=== PATIENT | male | born 1985 | race Caucasian/White ===

== ENCOUNTER 2020-12-20 19:10 | Emergency (ER) | payer OTHER, SELFPAY ==
[2020-12-20 19:15] VITALS: BP 149/106; PULSE 96; RESP 21; TEMP 35.8; O2SAT 97; BMI 31.1
[2020-12-20 19:34] LABS: Apearance,Urine Clear (Clear); Color,Urine Yellow (Yellow); Glucose,Urine (UA) >=1000 (Negative); Protein,Urine Negative (Negative); Specific Gravity, Urine 1.015 (1.005-1.030)
[2020-12-20 19:35] LABS: Microscopic, Urine URINE MICROSCOPIC (MICROSCOPIC)
[2020-12-20 19:35] LABS: Bilirubin,Urine Negative (Negative); Blood, Urine Negative (Negative); Ketones,Urine 15 (Negative); UTC Leukocyte Esterase,Urine Negative (Negative); UTC Nitrate,Urine Negative (Negative); Urobilinogen,Urine 0.2 EU/dl (0.2)
--- NOTE | 2020-12-20 19:37 | HMH.EDUTC ---
[facility] [place] Disposition Clinical Impression: Hyperglycemia Disposition: Still a Patient Condition on Discharge: Fair Referrals: PCP,Dianna [Primary Care Provider] - Time of Disposition: 19:45 Medical Decision Making - Master Inquiry Pt receiving controlled substance: No Master was queried for this patient: No Vital Signs: 12/20/20 19:15 Temperature 96.5 F L Temperature Source Temporal Artery Scan Pulse Rate [Left Brachial] 96 H Respiratory Rate 21 Blood Pressure [Left Arm] 149/106 H Blood Pressure Mean [Left Arm] 120 Blood Pressure Source [Left Arm] Automatic Cuff Blood Pressure Position [Left Arm] Sitting 02 Sat by Pulse Oximetry 97 Oxygen Delivery Method Room Air - Lab Data Lab results reviewed: Yes: I reviewed the patient's lab results. Lab Results 12/20/20 19:28: Urine Color Yellow, Urine Appearance Clear, Urine pH 6.0, Ur Specific [place] 1.015, Urine Protein Negative, Urine Glucose (UA) >=1000, Urine Ketones 15, Urine Blood Negative, Urine Nitrate Negative, Urine Bilirubin Negative, Urine Urobilinogen 0.2, Ur Leukocyte Esterase Negative Orders (Tests/Meds): ORDERS Category Date Time Status Urinalysis and Microscopic Stat Lab 12/20/20 19:30 Received Medical Decision Narrative: Patient FSBS in [facility] read HI denies history of diabetes and due to complaints and symptoms recommended further work up and evaluation in the ED and patient agreed Called ED and spoke with Staff patient moved to room 10 [facility] [place] HPI - General Stated complaint: excessive thirst, dizzy,vomiting Time Seen by Provider: 12/20/20 19:20 Mode of Arrival: Ambulatory Source of Information: Patient Limitations: No Limitations Description of Symptoms (Recalled from Triage Doc. by RN): PATIENT C/O EXCESSIVE THIRST, DIZZINESS, NAUSEA, VOMITING AND FATIGUE. 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 NO HISTORY OF DIABETES, HOWEVER HE DOES HAVE A FAMILY HISTORY. HEENT Symptoms (Recalled from RN notes): No Resp Symptoms (Recalled from RN notes): No Skin Symptoms (Recalled from RN notes): No MS Symptoms (Recalled from RN notes): No Functional Status (Recalled from RN notes): WNL - History of Present Illness Provider Complaint: Patient states that for about a month on and off he has been having episodes of dizziness and blurred vision, state that he seen his Eye Doctor and they told him his vision had got worse and got new glasses States that for the last several days he has been feeling overly tired and not himself. Today he started having dizziness again, excessive thirst, blurry vision and not feeling right States that he was having frequent urination and sit down on couch and family states he zoned out felt sick at his stomach and vomited. States that mother is a diabetic and he used her machine and checked his FSBS and it read high so family made him come in States that he dont feel good - Related Data Home Medications Medication Instructions Recorded Confirmed ibuprofen 800 mg tablet 800 mg PO TID 09/06/19 09/06/19 Allergies Allergy/AdvReac Type Severity Reaction Status Date / Time No Known Allergies Allergy Verified 09/06/19 17:09 - Worker's Comp Is this a Worker's Comp case?: No [facility] History - Hepatitis A Screen Drug use history?: No High risk sexual behaviors?: No History of sexually transmitted infection?: No Currently employed?: No Childcare worker?: No Do you have indoor plumbing?: Yes Do you have electricity?: Yes Attestation statement:: This patient has been screened for Hepatitis A risk factors. I have reviewed the patient's past medical history: Yes Other Surgeries: Yes: Other - Social History Smoking Status: Current every day smoker Alcohol Intake: never Substance Use Type: denies use Occupational Status: other Household Members: family Family Hx:: Non-contributory ROS Obtained: Yes All systems reviewed & no additional complaints, Yes S
--- NOTE | 2020-12-20 19:38 | PC.NURSE ---
PATIENT SENT TO ER PER LEBRON SALVADOR APRN FOR FURTHER EVALUATION OF HYPERGLYCEMIA. REPORT GIVEN TO Julieth DECKER RN
[2020-12-20 19:48] VITALS: BP 149/106; PULSE 96; RESP 20; TEMP 36.4; O2SAT 97; BMI 31.0
[2020-12-20 19:54] LABS: Appearance,Urine CLEAR (Clear); Bilirubin,Urine Negative (Negative); Blood, Urine Negative (Negative); Color,Urine YELLOW (Yellow); Glucose,Urine (UA) 3+ (Negative); Ketones,Urine 1+ (Negative); Leukocyte Esterase,Urine Negative (Negative); Nitrate,Urine Negative (Negative); PH,Urine 6.5 (5.0-8.5); Protein,Urine Negative (Negative); Specific Gravity, Urine <= 1.005 (1.005-1.030); Urobilinogen,Urine 0.2 EU/dl (0.2)
[2020-12-20 20:00] VITALS: BP 149/98; PULSE 90; RESP 17; O2SAT 97
[2020-12-20 20:05] LABS: Basophils # 0.1 K/mm3 (0-0.2); Basophils % 0.7 % (0.1-2.0); Eosinophils # 0.1 K/mm3 (0.0-0.4); Hematocrit 49.6 % (42.0-52.0); Hemoglobin 16.4 g/dL (14.1-18.0); Lymphocytes # 3.6 K/mm3 (0.7-4.5); Lymphocytes % 38.2 % (10-50); Mean Corpuscular HGB Conc 33.1 g/dL (31.8-35.4); Mean Corpuscular Hemoglobin 31.1 pg (27.0-31.2); Mean Corpuscular Volume 94.2 fl (80-94); Mean Platelet Volume 10.3 fl (7.4-10.4); Monocytes # 0.5 K/mm3 (0.1-1.0); Neutrophils # 5.2 K/mm3 (1.8-7.8); Neutrophils % 55.1 % (37.0-80.0); Platelet Count 160 K/mm3 (142-424); Red Blood Count 5.27 M/mm3 (4.60-6.20); Red Cell Distribution Width 13.3 % (11.5-17.5); White Blood Count 9.5 K/mm3 (4.8-10.8)
[2020-12-20 20:08] LABS: Acetone, Serum (Rapid) None Detected (None Detect); Albumin Level 4.9 g/dl (3.5-5.0); Albumin/Globulin Ratio 1.3 (1.1-1.8); Alkaline Phosphatase 178 U/L (38-126); Anion Gap 17.4 mEq/L (5-15); Bilirubin,Total 1.2 mg/dl (0.2-1.3); Blood Urea Nitrogen 13 mg/dl (9-20); Calcium 10.3 mg/dl (8.4-10.2); Carbon Dioxide 25 mmol/L (22.0-30.0); Chloride 89 mmol/L (98-107); Creatinine Clearance Estimated 253 mL/min (50-200); Estimated Glomerular Filt Rate 153 ml/min (>60); GFR (African American) 186 ML/MIN (>60); Globulin 3.9 g/dL (1.3-3.2); Potassium 4.4 mmoL/L (3.5-5.1); Sodium 127 mmol/L (136-145); Total Protein,Serum 8.8 g/dl (6.3-8.2)
[2020-12-20 20:09] LABS: Alanine Aminotransferase 260 U/L (12-78); Aspartate Amino Transferase 151 U/L (17-59)
[2020-12-20 20:13] LABS: C-Reactive Protein 8.5 mg/L (0-4)
[2020-12-20 20:14] LABS: Hemoglobin A1C > 14.0 % (4.0-6.0)
[2020-12-20 20:30] VITALS: BP 140/98; PULSE 82; RESP 17; O2SAT 98
[2020-12-20 20:35] LABS: Erythrocyte Sedimentation Rate 5 mm/hr (0-15); Glucose 709 mg/dl (74-100)
[2020-12-20 21:00] VITALS: BP 141/96; PULSE 86; RESP 17; O2SAT 96
[2020-12-20 21:07] LABS: POC Glucose,Bedside 471 (70-110)
--- NOTE | 2020-12-20 21:49 | HMH.EDWEAK ---
ED Disposition Clinical Impression: Hyperglycemia, Hyperglycemia without ketosis, Elevated liver enzymes, Obesity (BMI 30.0-34.9) Disposition: Home, Self-Care Condition on Discharge: Good Instructions: DI for Hyperglycemia -- Adult Additional Instructions: call pcp on tuesday and use meds as directed Prescriptions: Metformin HCl [Metformin HCl ER] 500 mg PO BID #30 tab.er.24h Transmission Status: Pending to [id number] Referrals: PCP,No [Primary Care Provider] - - Critical Care Critical Care Time: No Attestation: On 12/20/20, the high probability of a clinically significant, sudden or life threatening deterioration of the following system(s) required my full and direct attention, intervention and personal management. The time I documented below is in addition to time spent performing reported procedures but includes the following listed in this critical care notation. Medical Decision Making - Medical Records Medical records reviewed: Yes: I reviewed the patient's medical records. - Master Inquiry Pt receiving controlled substance: No Vital Signs: 12/20/20 19:15 12/20/20 19:48 12/20/20 20:00 Temperature 96.5 F L 97.5 F L Temperature Source Temporal Artery Scan Oral Pulse Rate [Left Brachial] 96 H 96 H 90 Respiratory Rate 21 20 17 Blood Pressure [Left Arm] 149/106 H 149/106 H 149/98 H Blood Pressure Mean [Left Arm] 120 120 115 Blood Pressure Source [Left Arm] Automatic Cuff Automatic Cuff Blood Pressure Position [Left Arm] Sitting Supine 02 Sat by Pulse Oximetry 97 97 97 Oxygen Delivery Method Room Air Room Air 12/20/20 20:30 12/20/20 21:00 Temperature Temperature Source Pulse Rate [Left Brachial] 82 86 Respiratory Rate 17 17 Blood Pressure [Left Arm] 140/98 H 141/96 H Blood Pressure Mean [Left Arm] 112 111 Blood Pressure Source [Left Arm] Automatic Cuff Automatic Cuff Blood Pressure Position [Left Arm] Supine Sitting 02 Sat by Pulse Oximetry 98 96 Oxygen Delivery Method Room Air Room Air - Lab Data Lab results reviewed: Yes: I reviewed the patient's lab results. Lab Results 12/20/20 19:28: Urine Color Yellow, Urine Appearance Clear, Urine pH 6.0, Ur Specific [place] 1.015, Urine Protein Negative, Urine Glucose (UA) >=1000, Urine Ketones 15, Urine Blood Negative, Urine Nitrate Negative, Urine Bilirubin Negative, Urine Urobilinogen 0.2, Ur Leukocyte Esterase Negative 12/20/20 19:30: Urine Color Yellow, Urine Appearance Clear, Urine pH 6.5, Ur Specific [place] <= 1.005, Urine Protein Negative, Urine Glucose (UA) 3+, Urine Ketones 1+, Urine Blood Negative, Urine Nitrate Negative, Urine Bilirubin Negative, Urine Urobilinogen 0.2, Ur Leukocyte Esterase Negative, Urine WBC 3-5 12/20/20 19:44: WBC 9.5, RBC 5.27, Hgb 16.4, Hct 49.6, MCV 94.2 H, MCH 31.1, MCHC 33.1, RDW 13.3, Plt Count 160, MPV 10.3, Neut % (Auto) 55.1, Lymph % (Auto) 38.2, [place] % (Auto) 5.0, Eos % (Auto) 1.0, Baso % (Auto) 0.7, Neut # (Auto) 5.2, Lymph # (Auto) 3.6, [place] # (Auto) 0.5, Eos # (Auto) 0.1, Baso # (Auto) 0.1, ESR 5 12/20/20 19:44: Sodium 127 L, Potassium 4.4, Chloride 89 L, Carbon Dioxide 25, Anion Gap 17.4 H, BUN 13, Creatinine 0.60 L, Estimated Creat Clear 253, Estimated GFR 153, Est GFR ( Amer) 186, Glucose 709 H*, Calcium 10.3 H, Total Bilirubin 1.2, AST 151 H, ALT 260 H, Alkaline Phosphatase 178 H, C-Reactive Protein 8.5 H, Total Protein 8.8 H, Albumin 4.9, Globulin 3.9 H, Albumin/Globulin Ratio 1.3, Procalcitonin 0.240 12/20/20 19:44: Hemoglobin A1c > 14.0 H 12/20/20 19:44: Acetone Level None detected 12/20/20 21:00: POC Glucose 471 H* Result diagrams: 12/20/20 19:44 12/20/20 19:44 Orders (Tests/Meds): ED MEDICATIONS Generic Name Dose Route Start Last Admin Trade Name Freq PRN Reason Stop Dose Admin Sodium Chloride 1,000 mls @ 999 mls/hr 12/20/20 20:00 12/20/20 19:58 Sod Chlor 0.9% 1000ml Bag IV 12/20/20 21:00 999 mls/hr .Q1H1M ATTILA Administration Sodium Chloride 1,000
[2020-12-20 22:11] VITALS: BP 141/96; PULSE 86; RESP 16; TEMP 36.4; O2SAT 97
[2020-12-23 10:14] LABS: POC Glucose,Bedside > 600 (70-110)
== END 2020-12-20 22:14 | disposition home or self-care (01) ==
LOC: UTC 19:20 → ER 19:31
PROVIDERS: Emergency Medicine; Nurse Practitioner; Emergency Provider Emergency Medicine
DX: E11.65 Type 2 diabetes mellitus with hyperglycemia (principal); R74.8 Abnormal levels of other serum enzymes; F17.210 Nicotine dependence, cigarettes, uncomplicated
CPT/HCPCS: 80053; 81001; 81003; 82009; 82962; 83036; 84145; 85025; 85651; 86140; 96365; 96366; 96375; 99283

== ENCOUNTER 2021-05-26 12:07 | Emergency (ER) | payer OTHER, SELFPAY ==
[2021-05-26 12:21] VITALS: BMI 33.9
[2021-05-26 13:20] VITALS: BP 129/83; PULSE 102; RESP 19; TEMP 36.9; O2SAT 94; BMI 32.3
[2021-05-26 13:23] VITALS: BP 129/83; PULSE 102; RESP 19; TEMP 36.9; O2SAT 94
--- NOTE | 2021-05-26 13:34 | HMH.EDUTC ---
[facility] [place] Disposition Clinical Impression: Exposure to COVID-19 virus Disposition: Home, Self-Care Condition on Discharge: Good Instructions: Preventing the Spread of Coronavirus Discharge Instructions Additional Instructions: Drink plenty of fluids. Take tylenol for pain or fever. Return if you begin to have difficulty breathing. Follow up with your regular doctor. GO TO THE ER FOR ANY WORSENING SYMPTOMS Quarantine until you know the results of your covid-19 test. If it is positive, the health department should call you and give you further instructions about your length of Quarantine and other thing. Referrals: Russell Hamilton MD [Primary Care Provider] - Forms: Work/School Release Time of Disposition: 13:40 Medical Decision Making - Medical Records Medical records reviewed: No: I reviewed the patient's medical records. - Master Inquiry Pt receiving controlled substance: No Vital Signs: 05/26/21 13:20 05/26/21 13:23 Temperature 98.4 F 98.4 F Temperature Source Oral Pulse Rate 102 H Pulse Rate [Left] 102 H Respiratory Rate 19 19 Blood Pressure 129/83 Blood Pressure [Right Arm] 129/83 Blood Pressure Mean [Right Arm] 98 02 Sat by Pulse Oximetry 94 L [facility] [place] HPI - General Stated complaint: covid test Time Seen by Provider: 05/26/21 13:34 Mode of Arrival: Ambulatory Source of Information: Patient Limitations: No Limitations Description of Symptoms (Recalled from Triage Doc. by RN): Pt c/o cough, runny nose and headache that started a week before his Covid exposure. Pt wants Covid testingg. HEENT Symptoms (Recalled from RN notes): Yes Resp Symptoms (Recalled from RN notes): Yes Skin Symptoms (Recalled from RN notes): No MS Symptoms (Recalled from RN notes): No Functional Status (Recalled from RN notes): wnl - History of Present Illness Provider Complaint: She is here to be tested for covid. She states that she has had a runny nose and felt bad for the past 1 week. - Related Data Home Medications Medication Instructions Recorded Confirmed ibuprofen 800 mg tablet 800 mg PO TID 09/06/19 09/06/19 Previous Rx's Medication Instructions Recorded Metformin HCl [Metformin HCl ER] 500 mg PO BID #30 tab.er.24h 12/20/20 Allergies Allergy/AdvReac Type Severity Reaction Status Date / Time No Known Allergies Allergy Verified 09/06/19 17:09 - Worker's Comp Is this a Worker's Comp case?: No [facility] History - Hepatitis A Screen Drug use history?: No High risk sexual behaviors?: No History of sexually transmitted infection?: No Currently employed?: No Childcare worker?: No Do you have indoor plumbing?: Yes Do you have electricity?: Yes Attestation statement:: This patient has been screened for Hepatitis A risk factors. I have reviewed the patient's past medical history: Yes Medical History: Reports:: Diabetes Mellitus Type 2 Other Surgeries: Yes: Other - Social History Smoking Status: Current every day smoker Tobacco Type: cigarettes # Packs/Day (cigarettes): 1 Alcohol Intake: never Substance Use Type: denies use Occupational Status: other Household Members: family Family Hx:: Non-contributory ROS Obtained: Yes All systems reviewed & no additional complaints - Constitutional Constitutional: Reports system reviewed and no additional complaints, except as docu - Eyes Eyes: Reports system reviewed and no additional complaints, except as docu - ENT Ears, Nose, Mouth, and Throat: Reports system reviewed and no additional complaints, except as docu - Cardiovascular Cardiovascular: Reports system reviewed and no additional complaints, except as docu - Respiratory Respiratory: Reports system reviewed and no additional complaints, except as docu - Gastrointestinal Gastrointestingal: Reports: system reviewed and no additional complaints, except as docu Physical Exam - General General appearance: alert, in no apparent distress - Head Head exam:
== END 2021-05-26 13:42 | disposition home or self-care (01) ==
PROVIDERS: Emergency Provider Nurse Practitioner Family; PCP Internal Medicine Adolescent Medicine
DX: Z20.822 Contact with and (suspected) exposure to COVID-19 (principal); E11.9 Type 2 diabetes mellitus without complications; F17.210 Nicotine dependence, cigarettes, uncomplicated
CPT/HCPCS: 99202; G0463; U0003

== ENCOUNTER → 2021-07-30 11:12 | Outpatient (CLI) | payer OTHER, SELFPAY | PROVIDERS: PCP Internal Medicine Adolescent Medicine; Visit Provider Nurse Practitioner | DX: Z20.822 Contact with and (suspected) exposure to COVID-19 (principal) | CPT/HCPCS: C9803; U0003; U0005 ==

== ENCOUNTER → 2021-08-07 14:10 | Outpatient (CLI) | payer OTHER, SELFPAY | PROVIDERS: PCP Family Medicine; Visit Provider Nurse Practitioner | DX: Z20.822 Contact with and (suspected) exposure to COVID-19 (principal) | CPT/HCPCS: C9803; U0003; U0005 ==

== ENCOUNTER 2021-09-14 11:17 | Emergency (ER) | payer OTHER, SELFPAY ==
[2021-09-14 12:38] VITALS: BP 145/90; PULSE 116; RESP 18; TEMP 36.9; O2SAT 96; BMI 33.2
[2021-09-14 12:49] LABS: UTC Influenza A Antigen Negative (Negative); UTC Influenza B Antigen Negative (Negative)
--- NOTE | 2021-09-14 12:56 | HMH.EDUTC ---
[facility] [place] Clinical Impression: Viral syndrome, Exposure to COVID-19 virus Acute bronchitis Qualifiers: Bronchitis organism: unspecified organism Qualified Code(s): J20.9 - Acute bronchitis, unspecified Disposition: Home, Self-Care Condition on Discharge: Good Instructions: DI for Acute Bronchitis, Preventing the Spread of Coronavirus Discharge Instructions Additional Instructions: Drink plenty of fluids. Take tylenol or ibuprofen for pain or fever. Take the medications as directed. Follow up with your regular doctor. GO TO THE ER FOR ANY WORSENING SYMPTOMS Quarantine until you know the results of your covid-19 test. If it is positive, the health department should call you and give you further instructions about your length of Quarantine and other things. Notify your school or workplace of your results and follow their instructions regarding return to work/school. Prescriptions: Brompheniramine/Pseudoephed/Dm [Bromfed Dm Cough Syrup] 5 ml PO Q6HP PRN #240 ml PRN Reason: Cough Transmission Status: Received by [id number] methylPREDNISolone [Medrol] 4 mg PO DIRECTED 6 Days #21 packet Transmission Status: Received by [id number] Azithromycin [Z-Олег 250mg Tab*] 250 mg PO UD DOSE PK #6 tab Transmission Status: Received by [id number] Referrals: Provider,Referral, MD [Primary Care Provider] - Forms: Work/School Release Time of Disposition: 13:06 Medical Decision Making - Medical Records Medical records reviewed: No: I reviewed the patient's medical records. - Master Inquiry Pt receiving controlled substance: No Vital Signs: 09/14/21 12:38 09/14/21 13:18 Temperature 98.4 F 98.4 F Temperature Source Oral Pulse Rate 116 H Pulse Rate [Left] 116 H Respiratory Rate 18 18 Blood Pressure 145/90 H Blood Pressure [Right Arm] 145/90 H Blood Pressure Mean [Right Arm] 108 02 Sat by Pulse Oximetry 96 - Lab Data Lab results reviewed: Yes: I reviewed the patient's lab results. Lab Results 09/14/21 12:43: Influenza Type A Ag Negative, Influenza Type B Ag Negative 09/14/21 12:46: Chlamy pneumoniae PCR Not detected, Adenovirus (PCR) Not detected, B. pertussis DNA (PCR) Not detected, Coronavirus OC43 (PCR) Not detected, Coronavirus HKU1 (PCR) Not detected, Coronavirus 229E (PCR) Not detected, SARS-CoV-2 (PCR) Not detected, Coronavirus NL63 (PCR) Not detected, Human Metapneumovir PCR Not detected, Influenza A (H1) PCR Not detected, Influ A (H1N1/09) PCR Not detected, Influenza A (H3) PCR Not detected, Influenza Type A (PCR) Not detected, Influenza Type B (PCR) Not detected, M. pneumoniae (PCR) Not detected, Parainfluenza 1 (PCR) Not detected, Parainfluenza 2 (PCR) Not detected, Parainfluenza 3 (PCR) Not detected, Parainfluenza 4 (PCR) Not detected, RSV (PCR) Not detected, Entero/Rhino (PCR) Not detected [facility] [place] - General Stated complaint: fever/chills, sore throat, cough, soa, SOSA Time Seen by Provider: 09/14/21 12:56 Mode of Arrival: Ambulatory Source of Information: Patient Limitations: No Limitations Description of Symptoms (Recalled from Triage Doc. by RN): pt states he has nasal drainage/congestion, sinus pressure, chills and green nasal mucous. HEENT Symptoms (Recalled from RN notes): Yes (green nasal mucous) Resp Symptoms (Recalled from RN notes): No Skin Symptoms (Recalled from RN notes): No MS Symptoms (Recalled from RN notes): No Functional Status (Recalled from RN notes): na - History of Present Illness Provider Complaint: He c/o body aches, cough, chest congestion, head ache and feeling bad since yesterday. He has not been vaccinated against covid-19. - Related Data Home Medications Medication Instructions Recorded Confirmed ibuprofen 800 mg tablet 800 mg PO TID 09/06/19 09/06/19 Previous Rx's Medication Instructions Recorded Metformin HCl [Metformin HCl ER] 500 mg PO BID #30 tab.er.24h 12/20/20 Azithromycin [Z-Олег 250mg
[2021-09-14 13:02] LABS: Adenovirus,PCR Not Detected (NotDetected); Bordetella Pertussis Not Detected (NotDetected); Chlamydophila Pneumoniae, PCR Not Detected (NotDetected); Coronavirus 19, PCR Not Detected (NotDetected); Coronavirus 229E Not Detected (NotDetected); Coronavirus NL63 Not Detected (NotDetected); Coronavirus OC43 Not Detected (NotDetected); Coronovirus HKU1,PCR Not Detected (NotDetected); Human Metapneumovirus Not Detected (NotDetected); Influenza A, PCR Not Detected (NotDetected); Influenza AH1, 2009 Not Detected (NotDetected); Influenza AH1, PCR Not Detected (NotDetected); Influenza AH3,PCR Not Detected (NotDetected); Influenza B, PCR Not Detected (NotDetected); Mycoplasma Pneumoniae, PCR Not Detected (NotDetected); Parainfluenza 1, PCR Not Detected (NotDetected); Parainfluenza 2, PCR Not Detected (NotDetected); Parainfluenza 3, PCR Not Detected (NotDetected); Parainfluenza 4, PCR Not Detected (NotDetected); Respiratory Syncytial Virus Not Detected (NotDetected); Rhinovirus/Enterovirus Not Detected (NotDetected)
[2021-09-14 13:18] VITALS: BP 145/90; PULSE 116; RESP 18; TEMP 36.9
== END 2021-09-14 13:19 | disposition home or self-care (01) ==
PROVIDERS: Emergency Provider Nurse Practitioner Family
DX: J20.9 Acute bronchitis, unspecified (principal); B34.9 Viral infection, unspecified; Z20.822 Contact with and (suspected) exposure to COVID-19; E11.9 Type 2 diabetes mellitus without complications; F17.210 Nicotine dependence, cigarettes, uncomplicated
CPT/HCPCS: 87581; 87632; 87798; 87804; 99202; C9803; G0463; U0003; U0005

== ENCOUNTER → 2021-12-28 08:42 | Outpatient (CLI) | payer OTHER, SELFPAY ==
--- NOTE | 2021-12-28 08:48 | US_ITS ---
FINAL REPORT CLINICAL HISTORY: ELEVATED LIVER ENZYMES; patient diabetic, high blood pressure, obesity FINDINGS: Sonographic images of the right upper quadrant were obtained. The pancreas is partially obscured.The liver is fatty infiltrated. There is a 2 cm gallstone present. There is no evidence of biliary ductal dilatation.The common duct measures 4mm. Limited images of the right kidney are unremarkable. IMPRESSION: Cholelithiasis. No evidence of cholecystitis. Reviewed, Interpreted and Dictated by Denton Bernardo III, MD Transcribed by Allison Salcido Authenticated by Denton Bernardo III, MD on 12/28/2021 09:36:32 AM [facility]
== END ==
PROVIDERS: Visit Provider Internal Medicine Adolescent Medicine
DX: R79.89 Other specified abnormal findings of blood chemistry (principal)
CPT/HCPCS: 76705

== ENCOUNTER 2022-05-27 09:14 | Emergency (ER) | payer OTHER, SELFPAY ==
[2022-05-27 09:40] VITALS: BP 138/77; PULSE 89; RESP 19; TEMP 36.6; O2SAT 98; BMI 35.2
[2022-05-27 09:50] VITALS: BP 138/77; PULSE 89; RESP 19; TEMP 36.6; O2SAT 98
--- NOTE | 2022-05-27 09:55 | HMH.EDUTC ---
[facility] [place] Impression: Exposure to COVID-19 virus Disposition: Home, Self-Care Condition on Discharge: Good Instructions: DI for COVID-19 (Suspected or Confirmed ), Preventing the Spread of Coronavirus Discharge Instructions Additional Instructions: *Monitor Temp, Over the counter Motrin or Tylenol as directed/as needed Tylenol every 4 hours and Motrin every 6 hours (as long as your family doctor has told you that you can take it) for fever or pain. and straight to ER if unable to lower temp less than 101.0 after medication given Follow up IMMEDIATELY for new or worsening symptoms or no Noticeable improvement over the next 48-72 hours. 911 for difficulty breathing or swallowing You were tested for today for COVID19 your test result should be back in the next 24-48 hours, you may check your results on the [facility] My Health Portal Make sure to take your Vitamins Vit. C Vit D and Zinc if you can take them Referrals: Alvin Edwards MD [Primary Care Provider] - As needed Forms: Work/School Release Medical Decision Making - Master Inquiry Pt receiving controlled substance: No Master was queried for this patient: No Vital Signs: 05/27/22 09:40 Temperature 97.8 F Temperature Source Oral Pulse Rate [Right Brachial] 89 Respiratory Rate 19 Blood Pressure [Right Arm] 138/77 Blood Pressure Mean [Right Arm] 97 Blood Pressure Source [Right Arm] Automatic Cuff Blood Pressure Position [Right Arm] Sitting 02 Sat by Pulse Oximetry 98 Oxygen Delivery Method Room Air Orders (Tests/Meds): ORDERS Category Date Time Status Covid-19 Nasal PCR ([facility]) Routine Lab 05/27/22 09:40 Received [facility] [place] - General Stated complaint: covid test Time Seen by Provider: 05/27/22 09:56 Mode of Arrival: Ambulatory Source of Information: Patient Limitations: No Limitations Description of Symptoms (Recalled from Triage Doc. by RN): COVID TEST D/T EXPOSURE. C/O COUGH, RUNNY NOSE, FEVER AND HEADACHE SINCE YESTERDAY HEENT Symptoms (Recalled from RN notes): Yes Resp Symptoms (Recalled from RN notes): Yes Skin Symptoms (Recalled from RN notes): No MS Symptoms (Recalled from RN notes): No Functional Status (Recalled from RN notes): WNL - History of Present Illness Provider Complaint: Patient states that and 2 kids at home had COVID about a week ago States that yesterday he started having some nasal congestion, body aches low grade fever and headache so he wanted to come in and get tested for COVID States that he did an at home test and it was positive - Related Data Home Medications Medication Instructions Recorded Confirmed ibuprofen 800 mg tablet 800 mg PO TID 09/06/19 02/25/22 Previous Rx's Medication Instructions Recorded Metformin HCl [Metformin HCl ER] 500 mg PO BID #30 tab.er.24h 12/20/20 methylPREDNISolone [Medrol] 4 mg PO DIRECTED 6 Days #21 09/14/21 packet Allergies Allergy/AdvReac Type Severity Reaction Status Date / Time No Known Allergies Allergy Verified 02/25/22 10:45 - Worker's Comp Is this a Worker's Comp case?: No [facility] History - Hepatitis A Screen Attestation statement:: This patient has been screened for Hepatitis A risk factors. I have reviewed the patient's past medical history: Yes Medical History: Reports:: Diabetes Mellitus Type 2 Other Surgeries: Yes: Other - Social History Smoking Status: Current every day smoker Tobacco Type: cigarettes # Packs/Day (cigarettes): 1 Alcohol Intake: never Substance Use Type: denies use Occupational Status: other Household Members: family Family Hx:: Non-contributory ROS Obtained: Yes All systems reviewed & no additional complaints, Yes Systems reviewed as appropriate & no additional complaints - Constitutional Constitutional: Reports system reviewed and no additional complaints, except as docu, Reports body ache, Reports chills, Reports fatigue, Reports headache(s) - ENT Ears, Nose, Mouth, and Throat: Reports sys
== END 2022-05-27 09:58 | disposition home or self-care (01) ==
PROVIDERS: Emergency Provider Nurse Practitioner; PCP Internal Medicine Adolescent Medicine
DX: U07.1 COVID-19
CPT/HCPCS: 99212; C9803; G0463; U0003; U0005

== ENCOUNTER 2023-04-07 07:42 | Emergency (ER) | payer OTHER, SELFPAY ==
[2023-04-07 07:42] VITALS: BP 145/92; PULSE 101; RESP 16; TEMP 36.7; O2SAT 97; BMI 34.5
--- NOTE | 2023-04-07 08:15 | HMH.EDGENADL ---
Discharge Plan Disposition Patient Disposition: Home Health Service Prescriptions Prescriptions: New clindamycin HCl 150 mg capsule 150 mg PO TID 7 Days Qty: 21 0RF No Action ibuprofen 800 mg tablet 800 mg PO TID metformin 500 MG tablet extended release 24 hr 500 mg PO BID Qty: 30 0RF methylprednisolone 4 MG tablets,dose pack 4 mg PO DIRECTED 6 Days Qty: 21 0RF Referrals Follow up/Referrals: Russell Hamilton MD [Primary Care Provider] - See instructions Clinical Impressions Clinical Impression: Cellulitis of skin of lip Discharge ED Provider: Saud Juarez General Adult HPI General Chief complaint: PAIN Stated complaint: Lip inflammation Time Seen by Provider: 04/07/23 08:06 Mode of Arrival: Ambulatory Limitations: No Limitations Description of Symptoms (Recalled from ER Triage Doc. by RN): pt to the ED with red, swollen upper lip that is painful to the touch and with movement. pt reports it was smaller yesterday when he went to his PCP for a check up. PCP gave him an antiviral and ointment.pt reports he picked at it at home and woke up this morning and it was much larger and more painful patient reports that about 3 weeks ago his had MRSA on her elbow. History of Present Illness HPI narrative: 37-year-old white male presents with upper lip lesion. He was seen by his primary care yesterday and given Bactroban and Valtrex for a lesion on his upper lip. Apparently he continued to try to pop it and this morning woke up with his entire middle portion of his upper lip swollen he has no known drug allergies but does take medication for diabetes. Related Data Home Medications Medication Instructions Recorded Confirmed ibuprofen 800 mg tablet 800 mg PO TID 09/06/19 02/25/22 Previous Rx's Medication Instructions Recorded metformin 500 mg tablet,extended 500 mg PO BID ##30 12/20/20 release 24 hr methylprednisolone 4 mg tablets in 4 mg PO DIRECTED 6 days #21 09/14/21 a dose pack packets clindamycin HCl 150 mg capsule 150 mg PO TID 7 days #21 caps 04/07/23 Allergies Allergy/AdvReac Type Severity Reaction Status Date / Time No Known Allergies Allergy Verified 02/25/22 10:45 [facility] Disclaimer: The information contained in this section may have been updated after the patient was seen, as this information can be updated by other users. Social History Smoking Status: Never smoker alcohol intake: never substance use type: denies use current occupational status: other Travel in the last 8 weeks: None household members: family ROS Obtained: Yes All systems reviewed & no additional complaints except as documented Physical Exam General General appearance: alert and in no apparent distress Head Head exam: atraumatic and normocephalic Expanded ENT Exam Nose/Mouth Image: 1. Red swollen with central ulcerated lesion. Neck Neck exam: Present normal inspection Chest Chest inspection: Present normal inspection Respiratory Respiratory exam: Present normal lung sounds bilaterally Cardiovascular Cardiovascular exam: Present regular rate and normal rhythm Abdominal Exam Abdominal exam: Present soft; Absent tenderness Extremities Exam Extremities exam: Present normal inspection Neurological Exam Neurological exam: Present alert, oriented X3 and CN II-XII intact Medical Decision Making Medical Records MR Comment: 37-year-old white male presents with lip lesion for which he started treatment yesterday with Bactroban and valacyclovir. The lesion is more swollen and tender today. Not certain whether this is a natural progression or whether it stems from pressure from trying to pop the lesion. Nonetheless he has exposure to MRSA the lesion itself would most likely be consistent with a viral lesion. He also now reports that he is having pain at the left side of his face which he attributes to clenching his teeth however shingles is always a possibility
[2023-04-07 08:46] VITALS: BP 143/91; PULSE 93; RESP 16; TEMP 36.6; O2SAT 95
== END 2023-04-07 08:48 | disposition home health service (06) ==
PROVIDERS: Emergency Provider Emergency Medicine; PCP Internal Medicine Adolescent Medicine
DX: L03.211 Cellulitis of face (principal); R22.0 Localized swelling, mass and lump, head; Z20.818 Contact with and (suspected) exposure to other bacterial communicable diseases
CPT/HCPCS: 96372; 99283; 99284; J0696

== ENCOUNTER 2023-12-03 08:49 | Outpatient (CLI) | payer OTHER, SELFPAY ==
[2023-12-03 09:25] LABS: Basophils # 0.1 K/mm3 (0-0.2); Eosinophils # 0.1 K/mm3 (0.0-0.4); Eosinophils % 1.6 % (0.1-12.0); Hematocrit 52.2 % (42.0-52.0); Hemoglobin 17.8 g/dL (14.1-18.0); Lymphocytes # 3.3 K/mm3 (0.7-4.5); Lymphocytes % 39.9 % (10-50); Mean Corpuscular HGB Conc 34.1 g/dL (31.8-35.4); Mean Corpuscular Hemoglobin 32.8 pg (27.0-31.2); Mean Corpuscular Volume 96.2 fl (80-94); Mean Platelet Volume 9.5 fl (7.4-10.4); Monocytes # 0.5 K/mm3 (0.1-1.0); Monocytes % 6.4 % (1.7-9.3); Neutrophils # 4.3 K/mm3 (1.8-7.8); Neutrophils % 51.1 % (37.0-80.0); Platelet Count 125 K/mm3 (142-424); Red Blood Count 5.43 M/mm3 (4.60-6.20); Red Cell Distribution Width 13.9 % (11.5-17.5); White Blood Count 8.3 K/mm3 (4.8-10.8)
[2023-12-03 10:24] LABS: Chloride 108 mmol/L (98-107); Sodium 139 mmol/L (136-145)
[2023-12-03 10:25] LABS: Potassium 4.4 mmoL/L (3.5-5.1)
[2023-12-03 10:27] LABS: Alanine Aminotransferase 271 U/L (12-78); Albumin Level 4.6 g/dl (3.5-5.0); Albumin/Globulin Ratio 1.2 (1.1-1.8); Alkaline Phosphatase 111 U/L (38-126); Anion Gap 8.4 mEq/L (5-15); Aspartate Amino Transferase 200 U/L (17-59); Blood Urea Nitrogen 10 mg/dl (9-20); Calcium 9.6 mg/dl (8.4-10.2); Carbon Dioxide 27 mmol/L (22.0-30.0); Cholesterol 237 mg/dl (140-200); Estimated Glomerular Filt Rate 126 ml/min (>60); GFR (African American) 153 ML/MIN (>60); Globulin 3.9 g/dL (1.3-3.2); Glucose 119 mg/dl (74-100); Total Protein,Serum 8.5 g/dl (6.3-8.2); Triglycerides 153 mg/dl (30-150); VLDL Cholesterol 31 mg/dL (0-40)
[2023-12-03 10:28] LABS: Chol/HDL Ratio 4.8 (1-3.5); HDL Cholesterol 49 mg/dl (40-60)
[2023-12-03 10:57] LABS: Thyroid Stimulating Hormone 1.09 uIU/mL (0.465-4.68)
[2023-12-03 11:07] LABS: Hemoglobin A1C 6.2 % (4.0-6.0)
[2023-12-07 14:24] LABS: HBsAg Screen Negative (Negative); HCV Ab Reactive (Non Reactive); Hep A Ab, IGM Negative (Negative); Hep B Core Ab, IgM Negative (Negative)
== END 2023-12-03 23:59 ==
LOC: LAB 08:51
PROVIDERS: PCP Internal Medicine Adolescent Medicine; Visit Provider Nurse Practitioner Family
DX: E11.69 Type 2 diabetes mellitus with other specified complication (principal); R79.89 Other specified abnormal findings of blood chemistry; R53.83 Other fatigue; Z79.84 Long term (current) use of oral hypoglycemic drugs
CPT/HCPCS: 36415; 80053; 80061; 80074; 83036; 84443; 85025; 87522

== ENCOUNTER 2023-12-19 10:36 | Emergency (ER) | payer OTHER, SELFPAY ==
[2023-12-19 11:15] VITALS: BP 135/83; PULSE 100; RESP 18; TEMP 36.8; O2SAT 95; BMI 35.4
--- NOTE | 2023-12-19 11:34 | EXP.UTC ---
Discharge Plan Disposition Patient Disposition: Home, Self-Care Condition: Good Prescriptions Prescriptions: New oseltamivir [Tamiflu] 75 mg capsule 75 mg PO BID 5 Days Qty: 10 0RF [id number] [Bromfed DM] 2-30-10 mg/5 mL Syrup 5 ml PO Q6H PRN (Reason: Cough) Qty: 240 0RF ondansetron 4 mg Tablet,Disintegrating 4 mg PO Q8H PRN (Reason: Nausea) Qty: 12 0RF Referrals Follow up/Referrals: Russell Hamilton MD [Primary Care Provider] - See instructions Activity Restrictions/Add. Instructions Additional Instructions/Restrictions: Drink plenty of fluids. Take tylenol or ibuprofen for pain or fever. Take the medications as directed. Follow up with your regular doctor. GO TO THE ER FOR ANY WORSENING SYMPTOMS Clinical Impressions Clinical Impression: Influenza B Stand Alone Forms Stand Alone Forms: Work/School Release Instructions Patient Instructions: Influenza, DI for Influenza -- Adult, Ondansetron, Oseltamivir Discharge ED Provider: Alvin Rosario [facility] General Stated complaint: bodyaches,fever Time Seen by Provider: 12/19/23 11:34 History of Present Illness Provider Complaint: She states that for the past 2 days she has had fever, chills, body aches, malaise and a dry cough. Related Data Previous Rx's Medication Instructions Recorded rpnbokltablgyvq-pvhfpiybmatafoi-BR 5 ml PO Q6H PRN Cough #240 mL 12/19/23 2 mg-30 mg-10 mg/5 mL oral syrup (Bromfed DM) ondansetron 4 mg disintegrating 4 mg PO Q8H PRN Nausea #12 tabs 12/19/23 tablet oseltamivir 75 mg capsule (Tamiflu) 75 mg PO BID 5 days #10 caps 12/19/23 Allergies Allergy/AdvReac Type Severity Reaction Status Date / Time No Known Allergies Allergy Verified 12/19/23 11:36 [facility] Disclaimer: The information contained in this section may have been updated after the patient was seen, as this information can be updated by other users. Social History Smoking Status: Never smoker alcohol intake: never substance use type: denies use current occupational status: other Travel in the last 8 weeks: None household members: family ROS Obtained: Yes All systems reviewed & no additional complaints except as documented Constitutional Constitutional: Reports chills and Reports fever(s) Eyes Eyes: Denies eye discharge ENT Ears, Nose, Mouth, and Throat: Reports as per HPI Cardiovascular Cardiovascular: Denies chest pain Respiratory Respiratory: Denies chest congestion and Reports cough Gastrointestinal Gastrointestingal: Reports nausea; Denies abdominal pain, constipation, cramping, diarrhea or vomiting Musculoskeletal Musculoskeletal: Denies arthralgias Integumentary/Breasts Skin/Breast: Denies rash Neurologic Neurologic: Denies paresthesias Physical Exam General General appearance: alert and in no apparent distress Eye Eye exam: Present normal appearance, PERRL and EOMI ENT ENT exam: Present mucous membranes moist and normal external ear exam Expanded ENT Exam External ear exam: Present normal external inspection TM/Canal exam: Bilateral TM: erythema and bulging Nose exam: Absent sinus tenderness Nasal speculum exam: Bilateral: normal Mouth exam: Present normal external inspection; Absent drooling Teeth exam: Present normal inspection Throat exam: Present tonsillar erythema and tonsillomegaly Neck Neck exam: Present normal inspection, full ROM and trachea midline; Absent tenderness, lymphadenopathy or thyromegaly Chest Chest inspection: Present normal inspection and symmetric chest wall rise; Absent tenderness or rash Respiratory Respiratory exam: Present normal lung sounds bilaterally; Absent respiratory distress, wheezes, stridor or accessory muscle use Cardiovascular Cardiovascular exam: Present regular rate, normal rhythm and normal heart sounds Abdominal Exam Abdominal exam: Present soft; Absent distention, tenderness, guarding, rebound or rigidity Extremities Exam Extremities exam: Present normal inspection, full ROM and normal capillary refill; Absent tenderness or calf tenderness Back Exam Back exam: Present normal inspection and full ROM; Absent tenderness Neurological Exam Neurological exam: Present alert and oriented X3 Psychiatric Psychiatric exam: Present normal affect and normal mood Skin Skin exam: Present warm, dry, intact and normal color Lymphatic Lymphatic Findings: no adenopathy Medical Decision Making Medical Records Medical records reviewed: No I reviewed the patient's medical records. Master Inquiry Pt receiving controlled substance: No Lab Data Lab results reviewed: Yes I reviewed the patient's lab results.
[2023-12-19 11:45] LABS: UTC Influenza A Antigen Negative (Negative)
[2023-12-19 11:46] LABS: UTC Influenza B Antigen Positive (Negative)
[2023-12-19 12:17] VITALS: BP 135/83; PULSE 100; RESP 18; TEMP 36.8; O2SAT 95
== END 2023-12-19 12:17 | disposition home or self-care (01) ==
PROVIDERS: Emergency Provider Nurse Practitioner Family; PCP Internal Medicine Adolescent Medicine
DX: J10.1 Influenza due to other identified influenza virus with other respiratory manifestations (principal); R50.9 Fever, unspecified; R05.9 Cough, unspecified; M79.18 Myalgia, other site
CPT/HCPCS: 87804; 99212; 99214; G0463

== ENCOUNTER 2024-06-30 09:52 | Outpatient (CLI) | payer BC, SELFPAY ==
[2024-06-30 10:55] LABS: Basophils # 0.1 K/mm3 (0-0.2); Basophils % 1.2 % (0.1-2.0); Eosinophils # 0.1 K/mm3 (0.0-0.4); Hematocrit 51.7 % (42.0-52.0); Hemoglobin 16.2 g/dL (14.1-18.0); Lymphocytes # 2.5 K/mm3 (0.7-4.5); Lymphocytes % 30.7 % (10-50); Mean Corpuscular HGB Conc 31.3 g/dL (31.8-35.4); Mean Corpuscular Hemoglobin 31.7 pg (27.0-31.2); Mean Corpuscular Volume 101.2 fl (80-94); Mean Platelet Volume 10.2 fl (7.4-10.4); Monocytes # 0.4 K/mm3 (0.1-1.0); Monocytes % 5.3 % (1.7-9.3); Neutrophils % 61.8 % (37.0-80.0); Platelet Count 117 K/mm3 (142-424); Red Blood Count 5.11 M/mm3 (4.60-6.20); Red Cell Distribution Width 13.6 % (11.5-17.5)
[2024-06-30 11:01] LABS: INR 0.99 (0.9-1.1); Prothrombin Time 11.1 seconds (10.1-12.5)
[2024-06-30 11:34] LABS: Alanine Aminotransferase 86 U/L (12-78); Albumin/Globulin Ratio 1.1 (1.1-1.8); Alkaline Phosphatase 75 U/L (38-126); Anion Gap 9.4 mEq/L (5-15); Aspartate Amino Transferase 78 U/L (17-59); Bilirubin,Total 1.1 mg/dl (0.2-1.3); Blood Urea Nitrogen 14 mg/dl (9-20); Calcium 9.4 mg/dl (8.4-10.2); Carbon Dioxide 28 mmol/L (22.0-30.0); Chloride 105 mmol/L (98-107); Estimated Glomerular Filt Rate 108 ml/min (>60); GFR (African American) 130 ML/MIN (>60); Globulin 3.6 g/dL (1.3-3.2); Glucose 263 mg/dl (74-100); Potassium 4.4 mmoL/L (3.5-5.1); Sodium 138 mmol/L (136-145); Total Protein,Serum 7.6 g/dl (6.3-8.2)
[2024-06-30 14:25] LABS: Iron 119 ug/dL (49-181)
[2024-06-30 14:34] LABS: Total Iron Binding Capacity 352 ug/dL (261-462)
[2024-06-30 15:02] LABS: Ferritin 146 ng/ml (17.9-464)
[2024-07-01 08:15] LABS: Ceruloplasmin 22.3 mg/dL (16.0-31.0)
[2024-07-01 09:09] LABS: AFP, Tumor Marker 9.4 ng/mL (0.0-6.9)
[2024-07-01 10:10] LABS: Hepatitis B Surface Antigen Negative (Negative)
[2024-07-02 13:12] LABS: Actin (Smooth Muscle) Antibody 43 Units (0-19); Mitochondrial (M2) Antibody <20.0 Units (0.0-20.0)
[2024-07-03 09:22] LABS: Immunoglobulin G, Qn 1561 mg/dL (603-1613)
[2024-07-09 17:10] LABS: Alpha-1-Antitrypsin 156 mg/dL (95-164); Phenotype (PI) MS (.)
== END 2024-06-30 23:59 | disposition home or self-care (01) ==
LOC: LAB 09:57
PROVIDERS: PCP Internal Medicine Adolescent Medicine; Visit Provider Physician Assistant
DX: R74.01 Elevation of levels of liver transaminase levels (principal)
CPT/HCPCS: 87340; 36415; 80053; 81256; 82103; 82104; 82105; 82390; 82728; 82784; 83540; 83550; 85025; 85610; 86038; 86255; 86256

== ENCOUNTER 2024-07-19 21:11 | Emergency (ER) | payer BC, SELFPAY ==
[2024-07-19 21:13] VITALS: BP 128/90; PULSE 84; RESP 20; TEMP 36.9; O2SAT 96; BMI 34.5
[2024-07-19 21:17] VITALS: BP 128/90; PULSE 80; O2SAT 95
--- NOTE | 2024-07-19 21:24 | ED_ITS ---
<Statement entered by Amor Nelson MD - 07/19/24 22:48> I was consulted by the HAILEY, and we discussed the complexity of the problems being addressed. I approved the treatment and management plan for this patient's care in the emergency department, thus performing a substantive portion of the medical decision making. Amor Nelson MD, BHARATHI, FACEP Discharge Plan Disposition Patient Disposition: Home, Self-Care Condition: Good Prescriptions Prescriptions: New methocarbamol 750 mg tablet 750 mg PO Q6H PRN (Reason: muscle spasm) Qty: 20 0RF lidocaine 5 % adhesive patch,medicated 1 patch topical DAILY Qty: 30 0RF Rx Instructions: leave on most painful area for up to 12 hrs No Action oseltamivir [Tamiflu] 75 mg capsule 75 mg PO BID 5 Days Qty: 10 0RF [id number]-rqtcmwqrq-GG [Bromfed DM] 2-30-10 mg/5 mL Syrup 5 ml PO Q6H PRN (Reason: Cough) Qty: 240 0RF ondansetron 4 mg Tablet,Disintegrating 4 mg PO Q8H PRN (Reason: Nausea) Qty: 12 0RF Referrals Follow up/Referrals: Russell Hamilton MD [Primary Care Provider] - See instructions Activity Restrictions/Add. Instructions Additional Instructions/Restrictions: Follow-up with your PCP within 48 hours for recheck. Return to ER for any worsening signs or symptoms as needed. Clinical Impressions Clinical Impression: Left-sided chest wall pain Instructions Patient Instructions: DI for Low Back Pain Print Language Print Language: Kazakh Discharge ED Provider: Amor Nelson General Adult HPI General Chief complaint: Back Pain/Injury Stated complaint: left rib pain and around back Time Seen by Provider: 07/19/24 21:24 History of Present Illness HPI narrative: Patient presents for evaluation of left posterior rib pain. Patient states that he coughed very vigorously yesterday and felt a very sharp pain in his posterior lateral left ribs. He reports no shortness of breath but reports that it hurts with a taking a deep breath. He denies any trauma. He has had several episodes of today where he has coughed and been incapacitated from the pain afterwards periodically. He has never had something like this happen before. He is a full-time smoker and denies cardiac chest pain fever chills hemoptysis hematochezia melena nausea vomit diarrhea. Related Data Previous Rx's ?Medication ?Instructions ?Recorded wrxzdqhzsmnwgrn-egcmqbvfnrbegta-GA 5 ml PO Q6H PRN Cough #240 mL 12/19/23 2 mg-30 mg-10 mg/5 mL oral syrup (Bromfed DM) ondansetron 4 mg disintegrating 4 mg PO Q8H PRN Nausea #12 tabs 12/19/23 tablet oseltamivir 75 mg capsule (Tamiflu) 75 mg PO BID 5 days #10 caps 12/19/23 lidocaine 5 % topical patch 1 patch topical DAILY #30 ea 07/19/24 methocarbamol 750 mg tablet 750 mg PO Q6H PRN muscle spasm #20 07/19/24 tabs Allergies Allergy/AdvReac Type Severity Reaction Status Date / Time No Known Allergies Allergy Verified 12/19/23 11:36 [facility] Disclaimer: The information contained in this section may have been updated after the patient was seen, as this information can be updated by other users. Social History Smoking Status: Current every day smoker tobacco type: cigarettes packs per day: 1 alcohol intake: never substance use type: denies use current occupational status: other Travel in the last 8 weeks: None household members: family Other Medical History Have you received the Flu Vaccine for this season: No Have you received the Pneumonia Vaccine: No ROS Obtained: Yes Systems reviewed as appropriate & no additional complaints except as documented Physical Exam General General appearance: alert and in no apparent distress Chest Chest inspection: Present other (Patient is tender to palpation over the left posterior lateral rib cage with no visible ecchymosis edema or bony deformity.) Respiratory Respiratory exam: Present normal lung sounds bilaterally; Absent respiratory distress, wheezes or accessory muscle use Cardiovascular Cardiovascular exam: Present regular rate Neurological Exam Neurological exam: Present alert and oriented X3 Medical Decision Making Medical Records Medical records reviewed: Yes I reviewed the patient's medical records. Screening: Per USPSTF and CDC recommendations, given the prevalence of disease in our region, it is our hospital?s policy to screen for HIV and viral Hepatitis for all patients aged 18 and over and those with ongoing risk factors. Master Inquiry Pt receiving controlled substance: No Vital Signs: 07/19/24 21:13 07/19/24 21:17 Temperature 98.4 F Temperature Source Oral Pulse Rate 80 Pulse Rate [Left] 84 Respiratory Rate 20 Blood Pressure 128/90 Blood Pressure [Right Arm] 128/90 Blood Pressure Mean [Right Arm] 102 Blood Pressure Source [Right Arm] Automatic Cuff Blood Pressure Position [Right Arm] Sitting 02 Sat by Pulse Oximetry 96 95 Oxygen Delivery Method Room Air Room Air Orders (Tests/Meds): ED MEDICATIONS Discontinued Medications Generic Name Dose Route Start Last Admin Trade Name Michele PRN Reason Stop Dose Admin Acetaminophen 1,000 mg 07/19/24 21:29 07/19/24 21:35 Acetaminophen 500mg Tab PO 07/19/24 21:30 1,000 mg ONCE ONE Administration Ibuprofen 800 mg 07/19/24 21:29 07/19/24 21:35 Ibuprofen 400 Mg Tablet PO 07/19/24 21:30 800 mg ONCE ONE Administration Lidocaine 1 each 07/19/24 21:29 07/19/24 21:35 Lidocaine 5% Transdermal Patch TP 07/19/24 21:30 1 each ONCE ONE Administration Methocarbamol 500 mg 07/19/24 21:29 07/19/24 21:35 Methocarbamol 500mg Tablet PO 07/19/24 21:30 500 mg ONCE ONE Administration ORDERS Category Date Time Status XR ribs LT min 3V w CXR1V Stat Exams 07/19/24 21:29 Taken Medical Decision Narrative: In summary patient is a 39-year-old male who presents to the emergency department for evaluation of left posterior lateral chest wall pain. Patient is hemodynamically stable upon arrival, afebrile. Physical exam is remarkable for tenderness to palpation at the left posterior lateral mid rib cage without any palpable bony deformity edema ecchymosis or swelling. Breath sounds are clear and equal bilaterally to the bases. Heart sounds normal. Patient is in normal sinus rhythm on the bedside monitor satting 95% on room air on the bedside monitor. Differential diagnosis includes muscle strain versus possible costochondral separation versus possible rib fracture etc. Initial workup will be conducted with left ribs with chest view. Initial interventions include Tylenol ibuprofen Lidoderm and Robaxin. Initial workup reviewed by me and my informal interpretation of his imaging shows no acute fracture or process including normal lung flood no rib fracture before radiology read.. Upon repeat evaluation patient reported modest improvement after initial intervention. Given this appropriate for discharge with prescriptions sent for Lidoderm patch and Robaxin and strict return precautions. Critical Care Critical Care Time Critical Care Time: No
--- NOTE | 2024-07-19 21:29 | XR_ITS ---
PROCEDURE INFORMATION: Exam: XR Left Ribs with PA Chest Exam date and time: 07/19/2024 9:32 PM Age: 39 years old Clinical indication: Other: Left posterior rib pain TECHNIQUE: Imaging protocol: Radiologic exam of the left ribs with PA chest. Views: 3 views COMPARISON: No relevant prior studies available. FINDINGS: Lungs: Unremarkable. No consolidation. Pleural spaces: Unremarkable. No pleural effusion. No pneumothorax. Heart/Mediastinum: Unremarkable. No cardiomegaly. Bones/joints: Unremarkable. IMPRESSION: No acute findings.
[2024-07-19] MEDS: IBUPROFEN 400 MG TABLET 800 MG PO (21:35)
[2024-07-19] MEDS: ACETAMINOPHEN 500MG TAB 1000 MG PO (21:35)
[2024-07-19] MEDS: METHOCARBAMOL 500MG TABLET 500 MG PO (21:35)
[2024-07-19] MEDS: LIDOCAINE 5% TRANSDERMAL PATCH 1 EACH TP (21:35)
[2024-07-19 22:02] VITALS: BP 129/85; PULSE 78; RESP 20; TEMP 36.9; O2SAT 98
== END 2024-07-19 22:09 | disposition home or self-care (01) ==
PROVIDERS: Emergency Provider Student in an Organized Health Care Education/Training Program; PCP Internal Medicine Adolescent Medicine
DX: R07.9 Chest pain, unspecified (principal)
CPT/HCPCS: 71101; 99283

== ENCOUNTER 2025-08-12 12:06 | Emergency (ER) | payer BC, SELFPAY ==
[2025-08-12 12:15] VITALS: BP 151/66; PULSE 86; RESP 18; TEMP 36.8; O2SAT 95; BMI 33.9
[2025-08-12 12:22] LABS: POC Glucose,Bedside 342 gm/dL (70-110)
--- NOTE | 2025-08-12 12:28 | CT_ITS ---
FINAL REPORT TECHNIQUE: Axial CT images were performed through the head. Coronal reformatted images were submitted. This study was performed with techniques to keep radiation doses as low as reasonably achievable (ALARA). Individualized dose reduction techniques using automated exposure control or adjustment of mA and/or kV according to the patient's size were employed. CLINICAL HISTORY: Confusion, headache COMPARISON: None FINDINGS: The ventricles are normal in size. There is no evidence of hemorrhage. There is no mass or edema identified. There is no abnormal extra-axial fluid seen. The sinuses are well aerated. IMPRESSION: No acute intracranial process. Reviewed, Interpreted and Dictated by Nelson Sanford MD Transcribed by Milena Dallas Authenticated and [facility]
--- NOTE | 2025-08-12 12:29 | XR_ITS ---
FINAL REPORT TECHNIQUE: Single view chest CLINICAL HISTORY: Confusion, pt has diabetes that is not controlled well FINDINGS: A single view of the chest was obtained. The heart and mediastinum are within normal limits. The lungs are clear. There is no pneumothorax. IMPRESSION: No acute cardiopulmonary process. Reviewed, Interpreted and Dictated by Nelson Sanford MD Transcribed by Allison Salcido Authenticated and [facility]
--- OUTSIDE RECORDS SUMMARY | 2025-08-12 12:29 | XMS_ITS | Clinical Summary ---
Author Organization [facility] Address [address] [place] [address] Phone Care Team Providers Care Surgical Supply Assistant Name Role Phone Unavailable Primary Care Provider Unavailabl e Allergies No known active allergies Medications No known medications Social History Tobacco Use Types Packs/Day Years Used Date Smoking Tobacco: Every Day Cigarettes Alcohol Use Standard Drinks/Week Comments No 0 (1 standard drink = 0.6 oz pur e alcohol) Sex and Gender Information Value Date Recorded Sex Assigned at Not on file Legal Sex Male 5:45 AM EDT Gender Identity Not on file Sexual Orientation Not on file Last Filed Vital Signs Vital Sign Reading Time Taken Comments Blood Pressure 113/69 02/16/2013 9:28 PM EDT Pulse 79 02/16/2013 10:33 PM EDT Temperature 36.8 C (98.2 F) 02/16/2013 8:40 PM EDT Respiratory Rate 18 02/16/2013 10:33 PM EDT Oxygen Saturation 97% 02/16/2013 10:33 PM EDT Inhaled Oxygen Concentration - - Weight 77.1 kg (170 lb) 02/16/2013 8:40 PM EDT Height 182.9 cm (6') 02/16/2013 8:40 PM EDT Body Mass Index 23.06 02/16/2013 8:40 PM EDT Plan of Treatment Health Maintenance Due Date Last Done Comments Annual Wellness Exam 1988 DTaP/TDaP/Td (1 - Tdap) 2004 Hepatitis B Vaccine (1 of 3 - 19+ 3-dose series) 2004 COVID-19 Vaccine ( - 2024-2 6 season) 2025 Influenza Vaccine (#1) 2025 Meningococcal B Vaccine Aged Out No l onger eligible based on patient's age to complete this topic Pneumococcal Vaccine 0-49 Aged Out No longer eligible based on patient's age to complete this topic
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
[2025-08-12 12:56] LABS: Lactate Venous 2.0 mmol/L (0.4-2.0); VBG HCO3 24.1 mmol/L (23-30); VBG PCO2 37.5 mmol/L (35-51); VBG PH 7.43 mmol/L (7.31-7.41); VBG PO2 59.3 mmol/L (28-40)
[2025-08-12 13:04] LABS: Albumin Level 3.6 g/dl (3.5-5.0); Chloride 99 mmol/L (98-107); Hematocrit 44.7 % (42.0-52.0); Hemoglobin 15.7 g/dL (14.1-18.0); Immature Granulocytes % 0.3 %; Mean Corpuscular HGB Conc 35.1 g/dL (31.8-35.4); Mean Corpuscular Hemoglobin 31.9 pg (27.0-31.2); Mean Corpuscular Volume 90.9 fl (80-94); Nucleated Red Blood Cells % 0 %; Platelet Count 97 K/mm3 (142-424); Potassium 4.1 mmoL/L (3.5-5.1); Red Blood Count 4.92 M/mm3 (4.60-6.20); Red Cell Distribution Width-SD 40.9 fL; Sodium 131 mmol/L (136-145); White Blood Count 7.4 K/mm3 (4.8-10.8)
[2025-08-12 13:06] LABS: Anion Gap 11.1 mEq/L (5-15); Blood Urea Nitrogen 13 mg/dl (9-20); Carbon Dioxide 25 mmol/L (22.0-30.0); Creatinine Clearance Estimated 225 mL/min (50-200); Creatinine,Serum 0.70 mg/dl (0.66-1.25); Estimated Glomerular Filt Rate 125 ml/min (>60); GFR (African American) 151 ML/MIN (>60)
[2025-08-12 13:07] LABS: Alanine Aminotransferase 90 U/L (12-78); Albumin/Globulin Ratio 0.7 (1.1-1.8); Alkaline Phosphatase 99 U/L (38-126); Aspartate Amino Transferase 67 U/L (17-59); Bilirubin,Total 1.1 mg/dl (0.2-1.3); Calcium 9.0 mg/dl (8.4-10.2); Globulin 5.0 g/dL (1.3-3.2); Glucose 348 mg/dl (74-100); Magnesium 1.8 mg/dl (1.6-2.3); Total Protein,Serum 8.6 g/dl (6.3-8.2)
[2025-08-12 13:16] LABS: Acetone, Serum (Rapid) None Detected (None Detect)
[2025-08-12 13:35] LABS: Free T4 (Free Thyroxine) 1.65 ng/dl (0.78-2.19)
[2025-08-12 13:38] LABS: Thyroid Stimulating Hormone 1.03 uIU/mL (0.465-4.68)
[2025-08-12] MEDS: LACTATED RINGERS 1000ML 1,000 ML 999 ML IV (13:51)
[2025-08-12 13:54] LABS: Coronavirus 19, PCR Not Detected (NotDetected); Influenza A, PCR Not Detected (NotDetected); Influenza B, PCR Not Detected (NotDetected)
[2025-08-12 15:34] VITALS: BP 162/80; PULSE 80; RESP 20; TEMP 36.8; O2SAT 98
== END 2025-08-12 15:39 | disposition home or self-care (01) ==
PROVIDERS: Emergency Provider Student in an Organized Health Care Education/Training Program; PCP Internal Medicine Adolescent Medicine
DX: E11.65 Type 2 diabetes mellitus with hyperglycemia (principal); R51.9 Headache, unspecified; E87.3 Alkalosis; R41.0 Disorientation, unspecified; H53.8 Other visual disturbances; F17.210 Nicotine dependence, cigarettes, uncomplicated; Z79.84 Long term (current) use of oral hypoglycemic drugs
CPT/HCPCS: 70450; 71045; 80053; 82009; 82803; 82962; 83735; 84439; 84443; 85025; 87040; 87636; 96360; 99284; J7120